=== PATIENT | female | born 1995 | race American Indian/Alaskan Native ===

== ENCOUNTER 2020-08-03 12:05 | Emergency (ER) | payer SELFPAY ==
[2020-08-03 12:36] VITALS: BP 116/78
--- NOTE | 2020-08-03 14:11 | Event Note ---
ED Screening Note ED Screening Note: "think I have food poisoning" n/v/d that began yesterday she had steak and shrimp and potatoes abd cramping no fever no blood in stool or vomit PMHx none no allergies to meds LNMP: on currently This initial assessment/diagnostic orders/clinical plan/treatment(s) is/are subject to change based on patients health status, clinical progression and re- assessment by fellow clinical providers in the ED. Further treatment and workup at subsequent clinical providers discretion. Patient/guardian urged not to elope from the ED as their condition may be serious if not clinically assessed and managed. Initial orders include: labs, UA
[2020-08-03] MEDS ORDERED: ONDANSETRON 4 MG ODT TAB ONE (14:12)
[2020-08-03] MEDS: ONDANSETRON 4 MG ODT TAB PO ONE (14:16)
[2020-08-03 15:33] LABS: Basophils % (Auto) 0.2 % (0.0-1.8); Hematocrit 46.1 % (30.3-42.9); Hemoglobin 15.5 gm/dl (10.1-14.3); Lymphocytes # (Auto) 0.7 K/mm3 (1.2-5.4); Lymphocytes % (Auto) 10.4 % (13.4-35.0); Mean Corpuscular HGB Conc 34 % (30-34); Mean Corpuscular Volume 99 fl (79-97); Monocytes # (Auto) 0.4 K/mm3 (0.0-0.8); Monocytes % (Auto) 5.9 % (0.0-7.3); Platelet Count 296 K/mm3 (140-440); Red Blood Count 4.66 M/mm3 (3.65-5.03); Red Cell Distribution Width 12.4 % (13.2-15.2)
[2020-08-03 16:10] LABS: Alanine Aminotransferase 23 units/L (7-56); Albumin 5.3 g/dL (3.9-5); Blood Urea Nitrogen 10 mg/dL (7-17); Calcium 10.1 mg/dL (8.4-10.2); Hemolysis Index 9
[2020-08-03 16:38] LABS: BUN/Creatinine Ratio 17
[2020-08-03] MEDS ORDERED: POTASSIUM CHLORIDE ER 20 MEQ TAB PO ONE ×2 (16:53→19:52)
--- NOTE | 2020-08-03 16:57 | Emergency Department Report ---
ED General Adult HPI - General Chief complaint: Nausea/Vomiting/Diarrhea Stated complaint: NAUSEA AND VOMITTING Time Seen by Provider: 08/03/20 14:10 Source: patient Mode of arrival: Ambulatory Limitations: No Limitations - History of Present Illness Initial comments: 24-year-old -[place] female patient presents with complaints of nausea and vomiting x today upon waking. She reports she ate steak and sharp and potatoes last night and thinks she has food poisoning. She denies any hematemesis/coffee-ground emesis, diarrhea, urinary symptoms, or fever/chills/sweats. She reports she does have some upper abdominal cramping and burning sensation. No past medical or surgical history per patient. -: Sudden - Related Data Previous Rx's Medication Instructions Recorded Last Taken Type Ondansetron [Zofran Odt] 4 mg PO Q8HR PRN #10 tab.rapdis 08/03/20 Unknown Rx Potassium Chloride 10 meq PO QDAY 4 Days #4 tablet.er 08/03/20 Unknown Rx Allergies Allergy/AdvReac Type Severity Reaction Status Date / Time No Known Allergies Allergy Unverified 08/03/20 12:32 ED Review of Systems ROS: Stated complaint: NAUSEA AND VOMITTING Other details as noted in HPI Constitutional: denies: chills, diaphoresis, fever, malaise, weakness Respiratory: denies: shortness of breath Cardiovascular: denies: chest pain Gastrointestinal: as per HPI. denies: nausea, vomiting, diarrhea, constipation, hematemesis, melena, hematochezia Genitourinary: denies: urgency, dysuria, frequency, hematuria Skin: denies: rash, lesions Neurological: denies: headache Hematological/Lymphatic: denies: swollen glands ED Past Medical Hx - Past Medical History Previous Medical History?: No - Surgical History Additional Surgical History: TUBES IN EARS AND TONSILS REMOVED - Medications Home Medications: Home Medications Medication Instructions Recorded Confirmed Last Taken Type Ondansetron [Zofran Odt] 4 mg PO Q8HR PRN #10 tab.rapdis 08/03/20 Unknown Rx Potassium Chloride 10 meq PO QDAY 4 Days #4 tablet.er 08/03/20 Unknown Rx ED Physical Exam - General Limitations: No Limitations General appearance: alert, in no apparent distress - Head Head exam: Present: atraumatic, normocephalic - Eye Eye exam: Present: normal appearance. Absent: scleral icterus - ENT ENT exam: Present: mucous membranes moist - Neck Neck exam: Present: normal inspection - Respiratory Respiratory exam: Present: normal lung sounds bilaterally. Absent: respiratory distress - Cardiovascular Cardiovascular Exam: Present: regular rate, normal rhythm. Absent: systolic murmur, diastolic murmur, rubs, gallop - GI/Abdominal GI/Abdominal exam: Present: soft, tenderness (Minimal epi gastric), normal bowel sounds. Absent: distended, guarding, rebound, rigid - Extremities Exam Extremities exam: Present: full ROM - Back Exam Back exam: Present: full ROM - Neurological Exam Neurological exam: Present: alert, oriented X3, normal gait - Psychiatric Psychiatric exam: Present: normal affect, normal mood - Skin Skin exam: Present: warm, dry, intact, normal color. Absent: rash ED Course Vital Signs 08/03/20 12:35 Temperature 98.7 F Pulse Rate 59 L Respiratory 18 Rate Blood Pressure 116/78 O2 Sat by Pulse 98 Oximetry ED Medical Decision Making - Lab Data Result diagrams: 08/03/20 14:43 08/03/20 14:43 Lab Results 08/03/20 08/03/20 08/03/20 Range/Units 14:43 14:43 14:43 WBC 6.7 (4.5-11.0) K/mm3 RBC 4.66 (3.65-5.03) M/mm3 Hgb 15.5 H (10.1-14.3) gm/dl Hct 46.1 H (30.3-42.9) % MCV 99 H (79-97) fl MCH 33 H (28-32) pg MCHC 34 (30-34) % RDW 12.4 L (13.2-15.2) % Plt Count 296 (140-440) K/mm3 Lymph % (Auto) 10.4 L (13.4-35.0) % Dunn % (Auto) 5.9 (0.0-7.3) % Eos % (Auto) 0.0 (0.0-4.3) % Baso % (Auto) 0.2 (0.0-1.8) % Lymph # (Auto) 0.7 L (1.2-5.4) K/mm3 Dunn # (Auto) 0.4 (0.0-0.8) K/mm3 Eos # (Auto) 0.0 (0.0-0.4) K/mm3 Baso # (Auto) 0.0 (0.0-0.1) K/mm3 Seg Neutrophils % 83.5 H (40.0-70.0) % Seg Neutrophils # 5.6 (1.8-7.7) K/mm3 Sodium 144 (137-145) mmol/L Potassium 3.1 L (3.6-5.0) mmol/L Chloride 103.8 (98-107) mmol/L Carbon Dioxide 26 (22-30) mmol/L Anion Gap 17 mmol/L BUN 10 (7-17) mg/dL Creatinine 0.6 (0.6-1.2) mg/dL Estimated GFR > 60 ml/min BUN/Creatinine Ratio 17 % Glucose 109 H (65-100) mg/dL Calcium 10.1 (8.4-10.2) mg/dL Total Bilirubin 0.60 (0.1-1.2) mg/dL AST 31 (5-40) units/L ALT 23 (7-56) units/L Alkaline Phosphatase 83 (35-129) units/L Total Protein 8.6 H (6.3-8.2) g/dL Albumin 5.3 H (3.9-5) g/dL Albumin/Globulin Ratio 1.6 % Lipase 64 H (13-60) units/L HCG, Qual Negative (Negative) Urine Color (Yellow) Urine Turbidity (Clear) Urine pH (5.0-7.0) Ur Specific [place] (1.003-1.030) Urine Protein (Negative) mg/dL Urine Glucose (UA) (Negative) mg/dL Urine Ketones (Negative) mg/dL Urine Blood (Negative) Urine Nitrite (Negative) Urine Bilirubin (Negative) Urine Urobilinogen (<2.0) mg/dL Ur Leukocyte Esterase (Negative) Urine WBC (Auto) (0.0-6.0) /HPF Urine RBC (Auto) (0.0-6.0) /HPF U Epithel Cells (Auto) (0-13.0) /HPF Urine Mucus /HPF 12/10/20 Range/Units Unknown WBC (4.5-11.0) K/mm3 RBC (3.65-5.03) M/mm3 Hgb (10.1-14.3) gm/dl Hct (30.3-42.9) % MCV (79-97) fl MCH (28-32) pg MCHC (30-34) % RDW (13.2-15.2) % Plt Count (140-440) K/mm3 Lymph % (Auto) (13.4-35.0) % Dunn % (Auto) (0.0-7.3) % Eos % (Auto) (0.0-4.3) % Baso % (Auto) (0.0-1.8) % Lymph # (Auto) (1.2-5.4) K/mm3 Dunn # (Auto) (0.0-0.8) K/mm3 Eos # (Auto) (0.0-0.4) K/mm3 Baso # (Auto) (0.0-0.1) K/mm3 Seg Neutrophils % (40.0-70.0) % Seg Neutrophils # (1.8-7.7) K/mm3 Sodium (137-145) mmol/L Potassium (3.6-5.0) mmol/L Chloride (98-107) mmol/L Carbon Dioxide (22-30) mmol/L Anion Gap mmol/L BUN (7-17) mg/dL Creatinine (0.6-1.2) mg/dL Estimated GFR ml/min BUN/Creatinine Ratio % Glucose (65-100) mg/dL Calcium (8.4-10.2) mg/dL Total Bilirubin (0.1-1.2) mg/dL AST (5-40) units/L ALT (7-56) units/L Alkaline Phosphatase (35-129) units/L Total Protein (6.3-8.2) g/dL Albumin (3.9-5) g/dL Albumin/Globulin Ratio % Lipase (13-60) units/L HCG, Qual (Negative) Urine Color Yellow (Yellow) Urine Turbidity Clear (Clear) Urine pH 8.0 H (5.0-7.0) Ur Specific [place] 1.029 (1.003-1.030) Urine Protein 100 mg/dl (Negative) mg/dL Urine Glucose (UA) Neg (Negative) mg/dL Urine Ketones 20 (Negative) mg/dL Urine Blood Sm (Negative) Urine Nitrite Neg (Negative) Urine Bilirubin Neg (Negative) Urine Urobilinogen < 2.0 (<2.0) mg/dL Ur Leukocyte Esterase Neg (Negative) Urine WBC (Auto) 1.0 (0.0-6.0) /HPF Urine RBC (Auto) 15.0 (0.0-6.0) /HPF U Epithel Cells (Auto) 6.0 (0-13.0) /HPF Urine Mucus 3+ /HPF - Medical Decision Making 24-year-old -[place] female patient presents with complaints of nausea and vomiting x today upon waking. She reports she ate steak and sharp and potatoes last night and thinks she has food poisoning. She denies any hematemesis/coffee-ground emesis, diarrhea, urinary symptoms, or fever/chills/sweats. She reports she does have some upper abdominal cramping and burning sensation. No past medical or surgical history per patient. Minimal epigastric tenderness noted on exam. No significant abnormalities noted on CBC, lipase or UA. Mild hypokalemia noted with a potassium of 3.1. Patient given oral potassium 40 mg. Patient given Pepcid, Reglan, and Benadryl. She is now tolerating foods and fluids p.o. without difficulty. She is well-appearing. Her vitals are normal. She is stable for discharge home. Prescription for Zofran and potassium given for home. Recommend follow-up with PCP in 3 to 5 days. Strict return precautions were discussed in great detail with patient who verbalizes understanding. Critical care attestation.: If time is entered above; I have spent that time in minutes in the direct care of this critically ill patient, excluding procedure time. ED Disposition Clinical Impression: Viral gastroenteritis Disposition: DC- TO HOME OR SELFCARE Is pt being admited?: No Condition: Stable Instructions: Viral Gastroenteritis, Adult Prescriptions: Potassium Chloride 10 meq PO QDAY 4 Days #4 tablet.er Ondansetron [Zofran Odt] 4 mg PO Q8HR PRN #10 tab.rapdis PRN Reason: Nausea Referrals: PRIMARY CARE,MD [Primary Care Provider] - 3-5 Days
[2020-08-03 17:13] LABS: Bilirubin,Urine NEG (Negative); Blood,Urine SM (Negative); Color,Urine Yellow (Yellow); Mucus,Urine 3+ /HPF; Urobilinogen,Urine < 2.0 mg/dL (<2.0)
[2020-08-03] MEDS ORDERED: diphenhydrAMINE 50 MG/ML VIAL IV ONE (17:43)
[2020-08-03] MEDS ORDERED: METOCLOPRAMIDE 10 MG/2 ML INJ IV ONE (17:43)
[2020-08-03] MEDS ORDERED: FAMOTIDINE 20 MG/2 ML INJ IV ONE (17:43)
== END 2020-08-03 20:58 | disposition home or self-care (01) ==
LOC: ED 12:05
DX: A08.4 Viral intestinal infection, unspecified (principal); Z79.899 Other long term (current) drug therapy
CPT/HCPCS: 36415; 80053; 81001; 83690; 84703; 85025; 96374; 96375; 99284; J1200; J2765; Q0162

== ENCOUNTER 2020-10-11 17:56 | Emergency (ER) | payer OTHER ==
[2020-10-11 18:37] VITALS: BP 133/94
[2020-10-11] MEDS ORDERED: HYDROcodone/ACETAMINOPHEN 5-325 MG TAB PO STA (19:01)
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
== END 2020-10-11 19:55 | disposition home or self-care (01) ==
LOC: ED 17:56
DX: R51.9 Headache, unspecified (principal); M79.10 Myalgia, unspecified site; F17.200 Nicotine dependence, unspecified, uncomplicated; Z98.890 Other specified postprocedural states; Z79.899 Other long term (current) drug therapy; V49.49XA Driver injured in collision with other motor vehicles in traffic accident, initial encounter; W22.10XA Striking against or struck by unspecified automobile airbag, initial encounter; Y93.89 Activity, other specified; Y92.410 Unspecified street and highway as the place of occurrence of the external cause; Y99.8 Other external cause status

== ENCOUNTER 2021-10-31 10:41 | Emergency (ER) | payer OTHER ==
--- NOTE | 2021-10-31 11:19 | Emergency Department Report ---
ED N/V/D HPI - General Chief complaint: Nausea/Vomiting/Diarrhea Stated complaint: N/V Time Seen by Provider: 10/31/21 11:18 Source: EMS Mode of arrival: Stretcher Limitations: No Limitations - History of Present Illness Initial comments: Patient presents by EMS secondary to nausea and vomiting with diarrhea. She developed GI symptoms last night and today. She has thrown up multiple times. She states it has been dark in color. She ate spaghetti with a meat sauce last night. She states that other people ate spaghetti. No one else got sick. She has not been on antibiotics lately. There has been no sick contact. Patient has had no exposure to coronavirus. She denies travel out of the country. She states she is getting some abdominal cramping with this. This seems to be in the middle. There is no dysuria or frequency. She does not believe she is because she is currently on her menstrual cycle. - Related Data Previous Rx's Medication Instructions Recorded Last Taken Type Ondansetron [Zofran ODT TAB] 4 mg PO Q8HR PRN #10 tab.rapdis 10/31/21 Unknown Rx Allergies Allergy/AdvReac Type Severity Reaction Status Date / Time No Known Allergies Allergy Verified 10/31/21 10:44 ED Review of Systems ROS: Stated complaint: N/V Other details as noted in HPI Comment: All other systems reviewed and negative Constitutional: denies: fever Eyes: denies: vision change ENT: denies: throat pain Respiratory: denies: cough Cardiovascular: denies: chest pain Endocrine: denies: unexplained weight loss Gastrointestinal: as per HPI Genitourinary: denies: dysuria Musculoskeletal: denies: back pain Skin: denies: rash Neurological: denies: headache Hematological/Lymphatic: denies: easy bruising ED Past Medical Hx - Past Medical History Previous Medical History?: No - Surgical History Additional Surgical History: TUBES IN EARS AND TONSILS REMOVED - Family History Family history: no significant - Social History Smoking Status: Current Every Day Smoker (We discussed tobacco cessation) - Medications Home Medications: Home Medications Medication Instructions Recorded Confirmed Last Taken Type Ondansetron [Zofran ODT TAB] 4 mg PO Q8HR PRN #10 tab.rapdis 10/31/21 Unknown Rx ED Physical Exam - General Limitations: No Limitations, Other (Pulse ox noted and normal) General appearance: alert, in no apparent distress - Head Head exam: Present: atraumatic, normocephalic, normal inspection - Eye Eye exam: Present: normal appearance, PERRL, EOMI. Absent: scleral icterus - ENT ENT exam: Present: mucous membranes dry, normal external ear exam - Neck Neck exam: Present: normal inspection. Absent: meningismus - Respiratory Respiratory exam: Present: normal lung sounds bilaterally. Absent: respiratory distress - Cardiovascular Cardiovascular Exam: Present: regular rate, normal rhythm - GI/Abdominal GI/Abdominal exam: Present: soft, tenderness (Periumbilical). Absent: distend ed, guarding, rebound - Extremities Exam Extremities exam: Present: normal capillary refill - Back Exam Back exam: Absent: CVA tenderness (R), CVA tenderness (L) - Neurological Exam Neurological exam: Present: alert, oriented X3, CN II-XII intact. Absent: motor sensory deficit - Psychiatric Psychiatric exam: Present: normal affect, normal mood - Skin Skin exam: Present: warm, dry ED Course Vital Signs 10/31/21 10/31/21 10/31/21 10:42 11:40 11:46 Temperature 98 F Pulse Rate 65 Respiratory 20 Rate Blood Pressure 107/63 Blood Pressure 119/78 [Left] O2 Sat by Pulse 99 100 100 Oximetry 10/31/21 10/31/21 10/31/21 12:00 12:24 12:30 Temperature Pulse Rate Respiratory Rate Blood Pressure 123/78 123/78 118/70 Blood Pressure [Left] O2 Sat by Pulse 100 100 100 Oximetry 10/31/21 10/31/21 10/31/21 12:44 12:45 13:00 Temperature Pulse Rate Respiratory Rate Blood Pressure 118/70 121/79 Blood Pressure [Left] O2 Sat by Pulse 99 89 90 Oximetry 10/31/21 14:22 Temperature Pulse Rate Respiratory Rate Blood Pressure 121/79 Blood Pressure [Left] O2 Sat by Pulse 90 Oximetry - Reevaluation(s) Reevaluation #1: 10/31/21 11:19 EMS was met. Labs ordered. Old records reviewed. ED Medical Decision Making - Lab Data Result diagrams: 10/31/21 12:53 10/31/21 12:53 - Medical Decision Making Patient presents with nausea, vomiting, and diarrhea. She clinically was dehydrated. She had thrown up some brown material but I do not believe this was blood. What I saw was not coffee-ground in nature. She does not have evidence of bowel obstruction. There is no distention or tympany. She does not have peritoneal finding on exam. There is no evidence of acute hepatitis or pancreatitis. She likely has a viral enteritis, but was treated empirically for her symptoms and released. She is not so ectopic has been excluded. Critical Care Time: No Critical care attestation.: If time is entered above; I have spent that time in minutes in the direct care of this critically ill patient, excluding procedure time. ED Disposition Clinical Impression: Nausea vomiting and diarrhea, Dehydration, Abdominal cramps Disposition: HOME / SELF CARE / HOMELESS Is pt being admited?: No Condition: Stable Instructions: Food Choices to Help Relieve Diarrhea, Adult, Dehydration, Adult, [id number], Nausea and Vomiting, Adult Additional Instructions: Have a bland diet. Drink plenty of water. Return for problems. Follow-up with your regular doctor or the referral doctor for recheck. Prescriptions: Ondansetron [Zofran ODT TAB] 4 mg PO Q8HR PRN #10 tab.rapdis PRN Reason: Nausea Referrals: PRIMARY CARE, [Referring] - 3-5 Days YOLA BURNETT MD [Staff Physician] - 3-5 Days
[2021-10-31] MEDS: SODIUM CHLORIDE 0.9% 1000 ML 1,000 ML IV ONE (11:41)
[2021-10-31] MEDS: METOCLOPRAMIDE 10 MG/2 ML INJ IV ONE (11:42)
[2021-10-31 13:59] LABS: Hematocrit 42.4 % (30.3-42.9); Hemoglobin 14.2 gm/dl (10.1-14.3); Mean Corpuscular HGB Conc 33 % (30-34); Mean Corpuscular Volume 98 fl (79-97); Platelet Count 228 K/mm3 (140-440); Red Blood Count 4.32 M/mm3 (3.65-5.03); Red Cell Distribution Width 12.1 % (13.2-15.2)
[2021-10-31] MEDS ORDERED: HALOPERIDOL LACTATE 5 MG/1 ML INJ ONE (14:03)
[2021-10-31 14:18] LABS: Alanine Aminotransferase 14 units/L (7-56); Albumin 4.9 g/dL (3.9-5); Blood Urea Nitrogen 7 mg/dL (7-17); Calcium 9.8 mg/dL (8.4-10.2); Hemolysis Index 20
[2021-10-31] MEDS: HALOPERIDOL LACTATE 5 MG/1 ML INJ IM ONE (14:25)
[2021-10-31 14:45] LABS: BUN/Creatinine Ratio 14
[2021-10-31] MEDS ORDERED: POTASSIUM CHLORIDE ER 20 MEQ TAB PO ONE (15:49)
[2021-10-31 16:18] VITALS: BP 111/63
== END 2021-10-31 16:17 | disposition home or self-care (01) ==
LOC: ED 10:41
DX: R11.2 Nausea with vomiting, unspecified (principal); R19.7 Diarrhea, unspecified; E86.0 Dehydration; R10.9 Unspecified abdominal pain; F17.200 Nicotine dependence, unspecified, uncomplicated
CPT/HCPCS: 36415; 80053; 83690; 84703; 85027; 96361; 96372; 96374; 99283; J1630; J2765; J7030; Q0162